=== PATIENT | male | born 1955 | race Caucasian/White ===

== ENCOUNTER 2018-11-20 19:35 | Emergency (ER) | payer MEDICARE, OTHER ==
[~2018-11-20] VITALS: Ht 170.2 cm; Wt 103.6 kg
[~2018-11-20 19:35] MED LIST: BENA10TA74 PO; CLIN150C8 PO; HYDR-4353 PO; IBUP-1986 PO; LISI-604 PO
[2018-11-20] MEDS ORDERED: TETanus/Pertussis (Acell)/Diphther VAC/PF (Tdap-Adult) 0.5ml syringe IM ONE (20:50)
[2018-11-20 21:02] VITALS: BP 114/87
== END 2018-11-20 21:06 | disposition home or self-care (01) ==
LOC: ER 19:35
DX: S60.222A Contusion of left hand, initial encounter (principal); I10 Essential (primary) hypertension; G89.29 Other chronic pain; Z88.0 Allergy status to penicillin; Z79.2 Long term (current) use of antibiotics; Z79.899 Other long term (current) drug therapy; Z79.1 Long term (current) use of non-steroidal anti-inflammatories (NSAID); X58.XXXA Exposure to other specified factors, initial encounter; Y93.89 Activity, other specified; Y92.89 Other specified places as the place of occurrence of the external cause; Y99.8 Other external cause status
CPT/HCPCS: 73120; 90471; 99283

== ENCOUNTER 2024-03-13 21:35 | Emergency (ER) | payer MEDICARE, OTHER ==
[~2024-03-13] VITALS: Ht 167.6 cm; Wt 102.7 kg
[~2024-03-13 21:35] MED LIST changes: +AMI200T PO; +APIX5TAB3 PO; -BENA10TA74 PO; +CARCD120C PO; -CLIN150C8 PO; -IBUP-1986 PO; -LISI-604 PO; +LISI5TAB22 PO
[2024-03-13 22:15] LABS: BASOPHILS % (AUTO) 0.6 % (0-1); EOSINOPHILS # (AUTO) 0.1 X10'3 (0-0.9); EOSINOPHILS % (AUTO) 1.2 % (0-6); HEMATOCRIT 50.7 % (42.0-52.0); HEMOGLOBIN 17.4 g/dl (14.0-17.9); LYMPHOCYTES # (AUTO) 1.7 X10'3 (1.1-4.8); LYMPHOCYTES % (AUTO) 21.2 % (21-51); MEAN CORPUSCULAR HEMOGLOBIN 31.2 PG (27.0-31.0); MEAN CORPUSCULAR HGB CONC 34.3 g/dL (33.0-36.5); MEAN PLATELET VOLUME 8.3 FL (7.4-10.4); MONOCYTES # (AUTO) 0.8 X10'3 (0-0.9); MONOCYTES % (AUTO) 10.1 % (2-12); NEUTROPHILS # (AUTO) 5.3 X10'3 (1.8-7.7); NEUTROPHILS % (AUTO) 66.9 % (42-75); PLATELET COUNT 255 X10'3 (140-440); RED BLOOD COUNT 5.57 X10'6 (4.70-6.10); WHITE BLOOD COUNT 7.9 X10'3 (4.5-11.0)
[2024-03-13] MEDS: diltiazem 5mg/ml 5ml inj. IV ONE (22:18)
[2024-03-13] MEDS: magnesium sulf-water 2g/50mL 50 ML IV ONE (22:29)
[2024-03-13 22:34] LABS: ALANINE AMINOTRANSFERASE 35 U/L (12-78); ALBUMIN 4.3 G/DL (3.4-5.0); ALBUMIN/GLOBULIN RATIO 1.1 (1.1-1.5); ALKALINE PHOSPHATASE 64 IU/L (46-116); ANION GAP 7 (8-16); ASPARTATE AMINO TRANSFERASE 25 U/L (10-37); BILIRUBIN,TOTAL 0.5 MG/DL (0.1-1.0); BLOOD UREA NITROGEN 13 MG/DL (7-18); BUN/CREATININE RATIO 13.5 (10.0-20.0); CALCIUM 9.1 MG/DL (8.5-10.1); CHLORIDE 105 MMOL/L (99-107); CREATININE 0.96 MG/DL (0.60-1.10); GLUCOSE 104 MG/DL (70-104); POTASSIUM 4.2 MMOL/L (3.5-5.1); SODIUM 139 MMOL/L (135-145); TOTAL CARBON DIOXIDE 27.4 MMOL/L (24-32); TOTAL PROTEIN 8.3 G/DL (6.4-8.2); eCRCL 67 ML/MIN; eGFR 78 ML/MIN
[2024-03-13 22:39] LABS: PRO BRAIN NATRIURETIC PEPTIDE 522 PG/ML (0-125)
[2024-03-13] MEDS: meclizine 12.5mg tablet PO ONE (23:07)
[2024-03-14] MEDS: HYDROcodone/acetaminophen 10/325mg tab PO ONE (01:52)
[2024-03-14] MEDS ORDERED: MECL-226 PO (02:21)
[2024-03-14 02:47] VITALS: BP 128/85; PULSE 93; RESP 18; TEMP 98.8; O2SAT 96
== END 2024-03-14 02:50 | disposition home or self-care (01) ==
LOC: ER 21:36
DX: H81.10 Benign paroxysmal vertigo, unspecified ear (principal); I48.91 Unspecified atrial fibrillation; I10 Essential (primary) hypertension; Z88.0 Allergy status to penicillin; Z95.0 Presence of cardiac pacemaker; G89.29 Other chronic pain
CPT/HCPCS: 36415; 71045; 80053; 82948; 83880; 84484; 85025; 93005; 96365; 96375; 99285; J3490; J8597

== ENCOUNTER 2024-05-29 14:34 | Emergency (ER) | payer MEDICARE, OTHER ==
[~2024-05-29] VITALS: Ht 170.2 cm; Wt 104.5 kg
[~2024-05-29 14:34] MED LIST changes: +MECL-226 PO
[2024-05-29 14:49] VITALS: BP 136/93; PULSE 89; TEMP 97.8; O2SAT 98
[2024-05-29 16:25] VITALS: RESP 16
[2024-05-29] MEDS ORDERED: DOXY-1 PO (17:35)
== END 2024-05-29 17:50 | disposition home or self-care (01) ==
LOC: ER 14:34
DX: N50.3 Cyst of epididymis (principal); I10 Essential (primary) hypertension; I48.91 Unspecified atrial fibrillation; Z88.0 Allergy status to penicillin; Z95.0 Presence of cardiac pacemaker
CPT/HCPCS: 76870; 93976; 99284